=== PATIENT | female | born 1985 | race African-American/Black ===

== ENCOUNTER → 2023-06-19 | Outpatient (CLI) | payer MEDICAID ==
[~2023-06-19] MED LIST: ALBUAER3 IN
== END | disposition home or self-care (01) ==
LOC: Rad HDHVI 13:10
PROVIDERS: ATTEND Internal Medicine Cardiovascular Disease
DX: I34.0 Nonrheumatic mitral (valve) insufficiency (principal); E78.5 Hyperlipidemia, unspecified
CPT/HCPCS: 93306

== ENCOUNTER → 2023-06-20 | Outpatient (CLI) | payer MEDICAID ==
[~2023-06-20] VITALS: Ht 152.4 cm; Wt 65.3 kg
== END | disposition home or self-care (01) ==
LOC: Rad HDHVI 13:42
PROVIDERS: ATTEND Internal Medicine Cardiovascular Disease
DX: Q21.0 Ventricular septal defect (principal); R00.2 Palpitations; J45.20 Mild intermittent asthma, uncomplicated; E78.00 Pure hypercholesterolemia, unspecified
CPT/HCPCS: 93017

== ENCOUNTER → 2024-04-23 | Outpatient (CLI) | payer MEDICAID | END | disposition home or self-care (01) | LOC: Rad HDHVI 09:10 | PROVIDERS: ATTEND Internal Medicine Cardiovascular Disease | DX: I34.0 Nonrheumatic mitral (valve) insufficiency (principal) | CPT/HCPCS: 93306 ==

== ENCOUNTER → 2024-04-24 | Outpatient (CLI) | payer MEDICAID ==
[~2024-04-24] VITALS: Ht 152.4 cm; Wt 68.9 kg
--- NOTE | 2024-05-08 14:25 | DVHSR ---
APPROVED REPORT Exam: Nuclear Stress Test Indication: Pre-Operative CV evaluation Ht: 5 ft 0 in Wt: 152 lbs BSA: 1.66 m2 HR: 88 bpm BP: 119/83 mmHg BMI: 29.68 Rhythm: NSR Medical History Medical History: Hypercholesterolemia, COPD, Mitral regurgitation Medications: Albuterol, Aspirin Allergies: No known drug allergies Stress Test Details Stress Test: Exercise stress testing was performed using a Mukund protocol. HR Resting HR: 88 bpmMax Heart Rate (APMHR): 180.934702 bpm Max HR Achieved: 171 bpmTarget HR (85% APMHR): 153.003439 bpm % of APMHR: 95.00 Recovery HR: 94 bpm HR response to stress: Accelerated HR response to stress BP Resting BP: 119/83 mmHg Max BP: 168/81 mmHg Recovery BP: 120/86 mmHg BP response to stress: Hypertensive response ECG Resting ECG: Sinus Rhythm Stress ECG: Sinus Tachycardia Arrhythmia: PAC Recovery ECG: Sinus Rhythm Clinical Reason for Termination: Target HR achieved, Fatigue Stress Symptoms: None Exercise duration: 4 min sec Exercise capacity: 7.0 METs Stress ECG Conclusion ECG RESPONSE NON ISCHEMIC CARDIOLITE IMAGES NO PERFUSION ABNL LESS THAN 10% LIKELIHOOD FOR STRESS INDUCED ISCHEMIA EF 45% NM EXAM: Myocardial Perfusion REST/STRESS Imaging Protocol: Rest Tc-99m/Stress Tc-99m 1 day Resting Data Rest SPECT myocardial perfusion imaging was performed in supine position 30 minutes following the int ravenous injection of 10.47 mCi of Tc-99m Sestamibi. Time of rest injection: 0934 Time of rest imagin Administration Route: IV Administration Site: Left AC Exercise Stress At peak stress, the patient was injected intravenously with 32.2 mCi of Tc-99m Sestamibi. Time of stress injection: 1056 Time of stress imagin Administration Route: IV Administration Site: Left AC Heart Rate at time of stress injection: 169 bpm. Patient continued to exercise for 1 minute(s). Gated Stress SPECT was performed 15 minutes after stress injection. The images were gated to evaluate regional wall motion and calculate left ventricular ejection fracti on. Comments Cardiolite injection at 3 minutes, 4 seconds into test. Study Data Post stress, the left ventricular ejection was 48%.. Nuclear Conclusion ECG RESPONSE NON ISCHEMIC CARDIOLITE IMAGES NO PERFUSION ABNL LESS THAN 10% LIKELIHOOD FOR STRESS INDUCED ISCHEMIA EF 45%
== END | disposition home or self-care (01) ==
LOC: Rad HDHVI 09:04
PROVIDERS: ATTEND Internal Medicine Cardiovascular Disease
DX: I49.3 Ventricular premature depolarization (principal); I49.1 Atrial premature depolarization; R00.0 Tachycardia, unspecified; E78.00 Pure hypercholesterolemia, unspecified; J44.9 Chronic obstructive pulmonary disease, unspecified
CPT/HCPCS: 78452; 93017; 96374; A9500